=== PATIENT | male | born 1965 | race Hispanic/Latino ===

== ENCOUNTER → 2021-03-12 | Outpatient (CLI) | payer OTHER ==
[~2021-03-12] MED LIST: COVID-19 VACC, MRNA(MODERNA)/PF 100 MCG/0.5 ML VIAL IM ONE
== END | disposition home or self-care (01) ==
LOC: VACCPMC 09:00
DX: Z23 Encounter for immunization (principal); Z20.822 Contact with and (suspected) exposure to COVID-19
CPT/HCPCS: 91301

== ENCOUNTER 2021-03-17 07:34 | Emergency (ER) | payer OTHER ==
[~2021-03-17] VITALS: Ht 172.7 cm; Wt 81.6 kg
== END 2021-03-17 08:02 | disposition home or self-care (01) ==
LOC: ER 07:45
DX: M67.431 Ganglion, right wrist (principal)
CPT/HCPCS: 99282

== ENCOUNTER → 2021-04-08 | Outpatient (CLI) | payer OTHER | END | disposition home or self-care (01) | LOC: VACCPMC 12:26 | DX: Z23 Encounter for immunization (principal); Z20.822 Contact with and (suspected) exposure to COVID-19 ==

== ENCOUNTER 2023-04-06 08:01 | Emergency (ER) | payer BC, OTHER ==
[~2023-04-06] VITALS: Ht 170.2 cm; Wt 85.4 kg
[~2023-04-06 08:01] MED LIST changes: -COVID-19 VACC, MRNA(MODERNA)/PF 100 MCG/0.5 ML VIAL IM ONE; +NAPROXEN250 MG PO
[2023-04-06 08:17] VITALS: O2SAT 98
[2023-04-06] MEDS ORDERED: IBUPROFEN200 MG PO (08:39)
[2023-04-06] MEDS ORDERED: AZITHROMYCIN250 MG PO (08:39)
[2023-04-06] MEDS ORDERED: THERAFLU FLU &1 EAC1 PO (08:39)
== END 2023-04-06 08:46 | disposition home or self-care (01) ==
LOC: FSED 08:28
DX: R05.9 Cough, unspecified (principal); J40 Bronchitis, not specified as acute or chronic; J06.9 Acute upper respiratory infection, unspecified; B34.9 Viral infection, unspecified
CPT/HCPCS: 83518; 87400; 99283

== ENCOUNTER 2025-07-30 10:52 | Emergency (ER) | payer OTHER ==
[~2025-07-30] VITALS: Ht 170.2 cm; Wt 87.6 kg
[~2025-07-30 10:52] MED LIST changes: +AMLODIPINE BESYL5 MG PO; +AZITHROMYCIN250 MG PO; +CRESTOR10 MG PO; +IBUPROFEN200 MG PO; +PREDNISONE20 MG PO; +THERAFLU FLU &1 EAC1 PO; +TYLENOL325 MG PO; +ULTRAM 50MG50 MG PO
[2025-07-30 11:00] VITALS: PULSE 68; RESP 20; TEMP 98.6; O2SAT 96
[2025-07-30] MEDS ORDERED: HYDROCODON-ACE1 EA11 PO (11:14)
== END 2025-07-30 11:21 | disposition home or self-care (01) ==
LOC: FSED 11:14
DX: M25.511 Pain in right shoulder (principal); S46.811A Strain of other muscles, fascia and tendons at shoulder and upper arm level, right arm, initial encounter; X50.9XXA Other and unspecified overexertion or strenuous movements or postures, initial encounter; Y92.89 Other specified places as the place of occurrence of the external cause; I10 Essential (primary) hypertension; E78.5 Hyperlipidemia, unspecified
CPT/HCPCS: 99284